=== PATIENT | male | born 1990 ===

== ENCOUNTER 2016-09-11 08:24 | Emergency (ER) | payer SELFPAY ==
[2016-09-11 08:30] VITALS: BP 120/73; PULSE 84; RESP 18; TEMP 98; O2SAT 97
[2016-09-11] MEDS ORDERED: Lidocaine 1% Inj (20ml) INFIL ONE (10:08)
[2016-09-11] MEDS ORDERED: Lidocaine 1% Inj (20ml) ONE (10:24)
--- NOTE | 2016-09-11 10:40 | RAD ---
PROCEDURE: Left small finger radiographs. HISTORY: crush injury COMPARISON: None available. TECHNIQUE: AP radiograph of the left hand, as well as spot oblique and lateral images of left small finger were obtained. FINDINGS: LEFT SMALL FINGER: Left fifth digit appears unremarkable without acute displaced fracture. Remainder of the left hand (as seen on the AP view) is grossly unremarkable. JOINTS: No dislocation. SOFT TISSUES: Soft tissue swelling. Punctate radiopaque density just distal to the 4th metacarpal. OTHER FINDINGS: None. IMPRESSION: Soft tissue swelling. No acute displaced fracture identified. If symptoms persist or if there is continued clinical concern, x-ray follow-up in 7-10 days should be considered. Punctate radiopaque density (approximately 1 mm) just distal to the 4th metacarpal, unclear etiology possibly artifactual however foreign body is not excluded. Correlate clinically.
--- NOTE | 2016-09-11 10:40 | C.PDOC ---
History Of Present Illness Patient is a 26 y/o male that presents to the ED for evaluation of laceration to left 5th digit. 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 Last tetanus unknown. Otherwise , denies any numbness/weakness, or any other associated symptoms at this time. Time Seen by Provider: 09/11/16 08:51 Chief Complaint (Nursing): Abnormal Skin Integrity History Per: Patient History/Exam Limitations: no limitations Onset/Duration Of Symptoms: Hrs Current Symptoms Are (Timing): Still Present Location Of Injury: Left: Hand Recent travel outside of the [place]: No Additional History Per: Patient Past Medical History Reviewed: Historical Data, Nursing Documentation, Vital Signs Vital Signs: Last Vital Signs Temp 98 F 09/11/16 08:30 Pulse 84 09/11/16 08:30 Resp 18 09/11/16 10:41 BP 120/73 09/11/16 08:30 Pulse Ox 97 09/11/16 10:51 Family History: States: No Known Family Hx - Social History Hx Alcohol Use: Yes Hx Substance Use: No - Immunization History Hx Tetanus Toxoid Vaccination: No Hx Influenza Vaccination: No Hx Pneumococcal Vaccination: No Review Of Systems Except As Marked, All Systems Reviewed And Found Negative. Constitutional: Negative for: Fever, Chills Skin: Positive for: Other (laceration to left 5th digit) Neurological: Negative for: Weakness, Numbness Physical Exam - Physical Exam Appears: Non-toxic, No Acute Distress Skin: Warm, Dry, Other (active bleeding, and oozing from left 5th digit nailbed. Horizontal laceration through the nail. ) Extremity: Normal ROM, Capillary Refill (< 2 sec.), No Swelling Neurological/Psych: Oriented x3, Normal Speech, Normal Cognition, Normal Motor, Normal Sensation ED Course And Treatment O2 Sat by Pulse Oximetry: 97 (on RA) Pulse Ox Interpretation: Normal - Other Rad Left hand x-ray X-Ray: Viewed By Me, Read By Radiologist Interpretation: FINDINGS: LEFT SMALL FINGER: Left fifth digit appears unremarkable without acute displaced fracture. Remainder of the left hand (as seen on the AP view) is grossly unremarkable. JOINTS: No dislocation. SOFT TISSUES: Soft tissue swelling. Punctate radiopaque density just distal to the 4th metacarpal. OTHER FINDINGS: None. IMPRESSION: Soft tissue swelling. No acute displaced fracture identified. If symptoms persist or if there is continued clinical concern, x-ray follow-up in 7-10 days should be considered. Punctate radiopaque density (approximately 1 mm) just distal to the 4th metacarpal, unclear etiology possibly artifactual however foreign body is not excluded. Correlate clinically. Progress Note: Left 5th digit x-ray ordered and reviewed. Patient was given Tetanus vaccination. Disposition - Disposition Disposition: ELOPEMENT - ER ONLY Disposition Time: 10:40 Condition: STABLE - Clinical Impression Clinical Impression: Nailbed laceration, finger - PA / MANGLE CATCHER / Resident Statement MD/DO has reviewed & agrees with the documentation as recorded. - Scribe Statement The provider has reviewed the documentation as recorded by the Dangeloibaquiles Walker All medical record entries made by the El were at my direction and personally dictated by me. I have reviewed the chart and agree that the record accurately reflects my personal performance of the history, physical exam, medical decision making, and the department course for this patient. I have also personally directed, reviewed, and agree with the discharge instructions and disposition.
== END 2016-09-11 10:43 | disposition left against medical advice (07) ==
LOC: C.ER 08:24
DX: S61.317A Laceration without foreign body of left little finger with damage to nail, initial encounter (principal); X58.XXXA Exposure to other specified factors, initial encounter; Y92.89 Other specified places as the place of occurrence of the external cause; Y99.0 Civilian activity done for income or pay

== ENCOUNTER 2016-10-25 00:49 | Emergency (ER) | payer SELFPAY ==
[2016-10-25 01:04] VITALS: RESP 16; O2SAT 99
--- NOTE | 2016-10-25 02:51 | C.PDOC ---
History Of Present Illness Patient is a 26 year old male who presents to the ER with a complaint of left sided chest pain intermittently for the past week. Patient states the pain worsens with movement and inspiration. 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 Denies dizziness, diaphoresis, nausea or vomiting. Time Seen by Provider: 10/25/16 01:17 Chief Complaint (Nursing): Chest Pain History Per: Patient History/Exam Limitations: no limitations Onset/Duration Of Symptoms: Days (7) Current Symptoms Are (Timing): Still Present Context: Other (Heavy lifting at work) Associated Symptoms: denies: Nausea, Diaphoresis, Other (Vomiting, Dizziness) Modifying Factors: Other Indicated Below Exacerbating Factors: Movement, Deep Breathing Alleviating Factors: None Recent travel outside of the [place]: No Past Medical History Reviewed: Historical Data, Nursing Documentation, Vital Signs Vital Signs: Last Vital Signs Temp 98.0 F 10/25/16 03:13 Pulse 62 10/25/16 03:13 Resp 16 10/25/16 03:13 BP 137/89 10/25/16 03:13 Pulse Ox 99 10/25/16 03:13 - Medical History PMH: No Chronic Diseases Surgical History: No Surg Hx Family History: States: Unknown Family Hx - Social History Hx Alcohol Use: Yes Hx Substance Use: No - Immunization History Hx Tetanus Toxoid Vaccination: No Hx Influenza Vaccination: No Hx Pneumococcal Vaccination: No Review Of Systems Constitutional: Negative for: Sweats Cardiovascular: Positive for: Chest Pain Gastrointestinal: Negative for: Nausea, Vomiting Neurological: Negative for: Dizziness Physical Exam - Physical Exam Appears: Non-toxic, No Acute Distress Skin: Normal Color, Warm, Dry Head: Atraumatic, Normacephalic Oral Mucosa: Moist Chest: Tenderness (Reproducible left intercostal inferior to nipple) Cardiovascular: Rhythm Regular, No Murmur Respiratory: Normal Breath Sounds, No Rales, No Rhonchi, No Wheezing Gastrointestinal/Abdominal: Soft, No Tenderness Neurological/Psych: Oriented x3, Normal Speech, Normal Cognition ED Course And Treatment ECG Interpretation: Normal Rate From EC O2 Sat by Pulse Oximetry: 99 (Room air) Pulse Ox Interpretation: Normal - Radiology CXR: Interpreted by Me, Viewed By Me CXR Interpretation: Yes: No Acute Disease Progress Note: CXR and EKG ordered. Motrin administered. Disposition Counseled Patient/Family Regarding: Diagnosis, Need For Followup, Rx Given - Disposition Disposition: HOME/ ROUTINE Disposition Time: 02:49 Condition: STABLE Additional Instructions: Please follow up in clinic Take motrin for pain Return to ER if worse Prescriptions: Ibuprofen [Motrin] 600 mg PO Q6H #20 tab Instructions: Chest Wall Pain (ED) Print Language: BAHAMIAN - Clinical Impression Clinical Impression: Chest wall pain - Scribe Statement The provider has reviewed the documentation as recorded by the Scribe Tarik Hdez All medical record entries made by the Dangeloibaquiles were at my direction and personally dictated by me. I have reviewed the chart and agree that the record accurately reflects my personal performance of the history, physical exam, medical decision making, and the department course for this patient. I have also personally directed, reviewed, and agree with the discharge instructions and disposition.
[2016-10-25 03:15] VITALS: BP 137/89; PULSE 62; TEMP 98
--- NOTE | 2016-10-25 14:03 | RAD ---
HISTORY: chest pain COMPARISON: No prior. TECHNIQUE: Chest PA and lateral FINDINGS: LUNGS: No active pulmonary disease. PLEURA: No significant pleural effusion identified. No pneumothorax apparent. CARDIOVASCULAR: Normal. OSSEOUS STRUCTURES: Minimal thoracic spondylosis VISUALIZED UPPER ABDOMEN: Normal. OTHER FINDINGS: None. IMPRESSION: No active disease.
== END 2016-10-25 03:15 | disposition home or self-care (01) ==
LOC: C.ER 00:49
DX: R07.89 Other chest pain (principal)